=== PATIENT | female | born 1990 ===

== ENCOUNTER 2018-04-05 10:17 | Emergency (ER) | payer MEDICAID ==
[2018-04-05 10:21] VITALS: BMI 17.9
[2018-04-05 11:20] VITALS: RESP 16
--- NOTE | 2018-04-05 11:36 | C.PDOC ---
History Of Present Illness 28 y/o female presents to the ED complaining of cough, congestion, fever, ear pain, and bodyaches for 2 days. Denies any vomiting, diarrhea, abdominal pain, or SOB. Did not receive a flu shot this year. + Sick contact in patients partner at home. Time Seen by Provider: 04/05/18 11:04 Chief Complaint (Nursing): Flu-like Symptoms History Per: Patient History/Exam Limitations: no limitations Onset/Duration Of Symptoms: Days Current Symptoms Are (Timing): Still Present Location Of Pain: Ear(s), Diffuse Myalgias Past Medical History Reviewed: Historical Data, Nursing Documentation, Vital Signs Vital Signs: Last Vital Signs Temp 99.7 F H 04/05/18 11:10 Pulse 109 H 04/05/18 11:10 Resp 16 04/05/18 11:10 BP 118/74 04/05/18 10:20 Pulse Ox 97 04/05/18 11:10 - Medical History PMH: No Chronic Diseases Surgical History: No Surg Hx Family History: States: No Known Family Hx - Social History Hx Tobacco Use: No Hx Alcohol Use: No Hx Substance Use: No - Immunization History Hx Tetanus Toxoid Vaccination: No Hx Influenza Vaccination: No Hx Pneumococcal Vaccination: No Review Of Systems Constitutional: Positive for: Fever, Other (Body aches) ENT: Positive for: Ear Pain, Nose Congestion, Throat Pain Cardiovascular: Negative for: Chest Pain Respiratory: Positive for: Cough. Negative for: Shortness of Breath Gastrointestinal: Negative for: Vomiting, Abdominal Pain, Diarrhea Skin: Negative for: Rash Neurological: Negative for: Weakness, Dizziness Physical Exam - Physical Exam Appears: Non-toxic, No Acute Distress Skin: Normal Color, Warm, Dry Head: Atraumatic, Normacephalic Eye(s): bilateral: Normal Inspection, PERRL, EOMI Ear(s): Bilateral: Normal (no erythema) Oral Mucosa: Moist Throat: Erythema (tonsillar), No Exudate, No Other (hypertrophy) Neck: Normal ROM, Supple Chest: Symmetrical Cardiovascular: Rhythm Regular, No Murmur Respiratory: Normal Breath Sounds, No Rales, No Rhonchi, No Wheezing Extremity: Bilateral: Normal Color And Temperature, Normal ROM Pulses: Left Radial: Normal, Right Radial: Normal Neurological/Psych: Oriented x3, Normal Speech ED Course And Treatment O2 Sat by Pulse Oximetry: 97 (RA) Pulse Ox Interpretation: Normal Medical Decision Making Medical Decision Making: Impression: Viral illness Plan: --Flu swab --Rapid strep --Tylenol 975 mg PO Disposition Counseled Patient/Family Regarding: Studies Performed, Diagnosis, Need For Followup, Rx Given - Disposition Referrals: [facility] [Outside] Disposition: HOME/ ROUTINE Disposition Time: 12:39 Condition: STABLE Additional Instructions: follow up with your doctor within 2 days call to make an appointment take medications as prescribed return to ER if symptoms worsens or progress drink plenty of fluids rest Prescriptions: Naproxen [Naprosyn] 500 mg PO BID PRN #16 tab PRN Reason: Pain, Moderate (4-7) Oseltamivir Phosphate [Tamiflu] 75 mg PO BID #10 capsule Instructions: Flu, Adult (DC) Forms: [facility] ([facility]ami), General Discharge Instructions, Work Excuse - Clinical Impression Clinical Impression: Influenza-like illness - Scribe Statement The provider has reviewed the documentation as recorded by the Jamey Schmitt Provider Attestation: All medical record entries made by the Jamey were at my direction and personally dictated by me. I have reviewed the chart and agree that the record accurately reflects my personal performance of the history, physical exam, medical decision making, and the department course for this patient. I have also personally directed, reviewed, and agree with the discharge instructions and disposition.
[2018-04-05 12:24] VITALS: BP 98/65; PULSE 108; TEMP 99.6
[2018-04-05 12:25] LABS: INFLUENZA A B NEGATIVE FOR FLU A/B (NEGATIVE)
[2018-04-05 12:40] VITALS: O2SAT 97
== END 2018-04-05 13:03 | disposition home or self-care (01) ==
LOC: C.ER 10:17
DX: J11.1 Influenza due to unidentified influenza virus with other respiratory manifestations (principal)